=== PATIENT | male | born 1980 | race Caucasian/White ===

== ENCOUNTER → 2023-12-30 12:43 | Outpatient (REF) | payer BC, SELFPAY | LOC: MRI 12:43 | PROVIDERS: ATTENDING PHYSICIAN Nurse Practitioner Family; FAMILY PHYSICIAN Family Medicine | DX: R22.1 Localized swelling, mass and lump, neck (principal) | CPT/HCPCS: 70543 ==

== ENCOUNTER → 2025-06-17 14:59 | Outpatient (REF) | payer BC, SELFPAY | LOC: DHSLP 14:59 | PROVIDERS: ATTENDING PHYSICIAN Family Medicine | DX: G47.33 Obstructive sleep apnea (adult) (pediatric) (principal) | CPT/HCPCS: 95800 ==